=== PATIENT | male | born 1945 | race Caucasian/White ===

== ENCOUNTER 2024-10-18 15:43 | Emergency (ER) | payer MEDICARE ==
[2024-10-18] MEDS: Ondansetron 4 MG/2 ML SDV IVPUSH ONE (15:44)
[2024-10-18] MEDS: Etomidate 2 MG/ML 20 ML SDV IVPUSH ONE (15:46)
[2024-10-18] MEDS: Succinylcholine 200 MG/10 ML MDV IV ONE (15:47)
[2024-10-18] MEDS ORDERED: Sodium Chloride 0.9% 2.5 ML Syringe FLUSH PRN (15:48)
[2024-10-18] MEDS ORDERED: Sodium Chloride 0.9% 10 ML Syringe FLUSH PRN (15:48)
[2024-10-18 15:57] LABS: BASOPHILS ABSOLUTE AUTO 0.04 K/uL (0.00-0.20); BASOPHILS PERCENT AUTO 0.6 % (0.0-1.0); EOSINOPHILS ABSOLUTE AUTO 0.19 K/uL (0.00-0.45); EOSINOPHILS PERCENT AUTO 2.7 % (0.0-6.0); IMMATURE GRAN ABSOLUTE AUTO 0.05 K/uL (0.00-0.05); IMMATURE GRAN PERCENT AUTO 0.7 % (0.0-0.4); LYMPHOCYTES ABSOLUTE AUTO 1.41 K/uL (1.00-4.80); LYMPHOCYTES PERCENT AUTO 20.1 % (24.0-44.0); MEAN PLATELET VOLUME 10.2 fL (9.4-12.4); MONOCYTES ABSOLUTE AUTO 0.79 K/uL (0.00-0.80); MONOCYTES PERCENT AUTO 11.2 % (0.0-8.0); NEUTROPHILS ABSOLUTE AUTO 4.55 K/uL (1.80-7.70); NEUTROPHILS PERCENT AUTO 64.7 % (41.0-71.0); NRBC ABSOLUTE 0.00 K/uL (0.00-0.02); NRBC PERCENT 0.0 /100WBC (0.0-0.2); PLATELET COUNT,PLT 153 K/uL (150-400); RED BLOOD CELL COUNT 4.10 M/uL (4.52-5.90); WHITE BLOOD CELL COUNT,WBC 7.03 K/uL (3.9-11.3)
[2024-10-18 15:58] LABS: BASE EXCESS VENOUS 5.6 (-2.0-3.0); BICARBONATE,VENOUS 31.0 mEq/L (22-29); PCO2 VENOUS 45.0 mmHG (41-51); PH,VENOUS 7.44 (7.32-7.43); PO2 VENOUS 32.0 mmHG (35-45)
[2024-10-18] MEDS: Propofol 200 MG/20 ML SDV IVPUSH ONE ×3 (15:58→16:43)
[2024-10-18] MEDS: propofoL 1,000 MG/100 ML 100 ML IV SCH (16:01)
[2024-10-18] MEDS: fentaNYL/Normal Saline 2,500 MCG in Premix Bag 1 BAG IV SCH (16:02)
[2024-10-18 16:07] LABS: INR 1.17 (0.86-1.11); PTT,PARTIAL THROMBOPLSTIN TIME 28.3 SEC (23.9-30.7)
[2024-10-18 16:20] LABS: ETHANOL BLOOD MEDICAL <3 mg/dL
[2024-10-18] MEDS: Iopamidol 755 MG/ML 500 ML Multipack Bottle IVPUSH STA (16:20)
[2024-10-18 16:26] LABS: A/G RATIO 1.1 (0.9-1.6); ALANINE AMINOTRANSFERASE,ALT 17 IU/L (14-63); ASPARTATE AMNIOTRANSFERASE,AST 26 IU/L (15-37); BILIRUBIN TOTAL 0.7 mg/dL (0.2-1.0); BLOOD UREA NITROGEN,BUN 28 mg/dL (7.0-18.0); CARBON DIOXIDE,CO2 28.9 mmol/L (21.0-32.0); CHLORIDE,CL 104 mmol/L (98-107); CHOLESTEROL HDL 64 mg/dL (40-60); CHOLESTEROL LDL CALCULATED 58 mg/dL (60-180); CHOLESTEROL TOTAL 133 mg/dL (50-200); CREATININE 1.2 mg/dL (0.8-1.3); GLUCOSE RANDOM 106 mg/dL (74-106); POTASSIUM,K 4.5 mmol/L (3.5-5.1); PRO B-TYPE NATRIUR PEPT,BNPPRO 539 pg/mL (0-450); PROTEIN TOTAL,TP 7.4 g/dL (6.4-8.2); SODIUM,NA 143 mmol/L (136-148); VLDL CHOLESTEROL 11 mg/dL (5-55)
[2024-10-18 16:27] LABS: ESTIMATED GFR 63 mL/min (>60)
[2024-10-18] MEDS ORDERED: HUM PROTHROMBIN CPLX(PCC)4FACT 2,000 UNIT IV ONE (16:35)
[2024-10-18] MEDS ORDERED: niCARdipine/Normal Saline 20 MG in Premix Bag 1 BAG IV SCH (16:45)
[2024-10-18] MEDS: FACTOR IX COMPLEX HUMAN IV ONE (17:22)
[2024-10-18] MEDS: STERILE IV ONE (17:22)
[2024-10-18] MEDS: WATER FOR INJECTION IV ONE (17:22)
[2024-10-18] MEDS: Propofol 200 MG/20 ML SDV ONE (17:33)
[2024-10-18] MEDS: propofoL 1,000 MG/100 ML 100 ML IV ONE (17:59)
[2024-10-19] MEDS: propofoL 1,000 MG/100 ML 100 ML ONE (07:33)
[2024-10-19] MEDS: Ondansetron 4 MG/2 ML SDV ONE (07:44)
== END 2024-10-18 18:02 ==
LOC: MW.ED 15:43
DX: I63.9 Cerebral infarction, unspecified (principal); G20.A1 Parkinson's disease without dyskinesia, without mention of fluctuations; R29.6 Repeated falls; Z95.0 Presence of cardiac pacemaker; Z79.01 Long term (current) use of anticoagulants; Z79.899 Other long term (current) drug therapy
CPT/HCPCS: 31500; 36415; 51702; 70450; 70450-26; 70496; 70496-26; 70498; 70498-26; 71045; 71045-26; 72125; 72125-26; 74018; 74018-26; 80053; 80061; 80143; 80179; 80307; 82803; 83036; 83605; 83880; 84484; 85025; 85610; 85730; 86850; 86900; 86901; 87040; 93005; 93010; 96365; 96366; 96368; 96375; 99285; 99291; 99292; J0330; J2405; J2704; J3490; J7030; Q9967